=== PATIENT | male | born 1955 | race Caucasian/White ===

== ENCOUNTER → 2023-02-17 | Outpatient (CLI) | payer MEDICARE, BC ==
[~2023-02-17] MED LIST: ASPI81TA26 PO; ATOR1TAB21; FOLI20CA PO; LOSA100T46; VITA100T82 PO; VITAMIN B PO; XARE20TA
== END ==
LOC: M WHC 08:20
PROVIDERS: ATTEND Internal Medicine Hematology & Oncology
DX: K76.0 Fatty (change of) liver, not elsewhere classified (principal); R16.1 Splenomegaly, not elsewhere classified; N28.1 Cyst of kidney, acquired; K76.89 Other specified diseases of liver; N20.0 Calculus of kidney

== ENCOUNTER → 2023-04-23 | Outpatient (REF) | payer MEDICARE, BC ==
[2023-04-23 13:53] LABS: APPEARANCE, URINE CLOUDY (CLEAR); BACTERIA, URINE AUTO NEGATIVE (NEGATIVE); BILIRUBIN, URINE AUTO NEGATIVE (NEGATIVE); BLOOD, URINE BLOOD 3+ (NEGATIVE); COLOR, URINE AMBER (YELLOW); GLUCOSE, URINE (UA) AUTO NEGATIVE (NEGATIVE); KETONE, URINE AUTO NEGATIVE (NEGATIVE); LEUKOCYTE ESTERASE, URINE AUTO NEGATIVE (NEGATIVE); NITRITE, URINE AUTO NEGATIVE (NEGATIVE); PROTEIN, URINE AUTO 2+ mg/dL (NEGATIVE); RBC, URINE AUTO TNTC /HPF (0-3); SPECIFIC GRAVITY URINE AUTO 1.018 (1.002-1.035); SQUAMOUS EPITHELIAL CELL UR AU 0 /HPF (0-6); UROBILINOGEN, URINE AUTO 0.2 mg/dL (0.0-2.0); WBC, URINE AUTO 0 /HPF (0-3)
== END ==
LOC: M LAB REF 12:39
PROVIDERS: ATTEND Internal Medicine
DX: Z01.818 Encounter for other preprocedural examination (principal)

== ENCOUNTER → 2023-05-12 | Outpatient (CLI) | payer MEDICARE, BC ==
[~2023-05-12] MED LIST changes: +CIPR500T39; +FLOM0.4C39 PO
== END ==
LOC: M WUC 13:19
PROVIDERS: ATTEND Urology
DX: N20.0 Calculus of kidney (principal); Z96.0 Presence of urogenital implants

== ENCOUNTER → 2023-11-17 | Outpatient (CLI) | payer MEDICARE, BC ==
[~2023-11-17] MED LIST changes: +B-10TAB2 PO
== END ==
LOC: M RAD 08:13
PROVIDERS: ATTEND Physician Assistant Medical
DX: N20.0 Calculus of kidney (principal); R31.9 Hematuria, unspecified

== ENCOUNTER → 2024-03-31 | Outpatient (CLI) | payer MEDICARE, BC ==
[~2024-03-31] MED LIST changes: +SEMAGLUTIDE
== END ==
LOC: M WUC 14:58
PROVIDERS: ATTEND Urology
DX: N20.0 Calculus of kidney (principal)

== ENCOUNTER → 2024-07-27 | Outpatient (CLI) | payer MEDICARE, BC ==
[2024-07-27 15:45] LABS: CHOLESTEROL RISK RATIO 4.3 (<5); HDL CHOLESTEROL 20.9 MG/DL (>40); LDL CHOLESTEROL 44.1 MG/DL (<100); NON-HDL-C 69.1 MG/DL
== END ==
LOC: M WUC 09:18
PROVIDERS: ATTEND Physician Assistant
DX: I25.10 Atherosclerotic heart disease of native coronary artery without angina pectoris (principal)

== ENCOUNTER → 2024-08-02 | Outpatient (CLI) | payer MEDICARE, BC ==
[2024-08-02 14:03] LABS: BASO % 0.3 % (0.0-1.0); EOS # 0.1 10^3/uL (0.0-0.5); EOS % 2.1 % (0.0-3.0); HEMATOCRIT 48.1 % (42.0-52.0); HEMOGLOBIN 16.3 g/dl (13.5-17.5); LYMPH # 1.2 10^3/uL (1.5-5.0); LYMPH % 20.2 % (24.0-44.0); MEAN CORPUSCULAR HEMOGLOBIN 31.8 pg (27.0-33.0); MEAN CORPUSCULAR HGB CONC 33.9 g/dl (32.0-36.5); MEAN CORPUSCULAR VOLUME 93.8 fl (80.0-96.0); MONO # 0.5 10^3/uL (0.0-0.8); MONO % 7.9 % (2.0-8.0); NEUTROPHILS % 69.3 % (36.0-66.0); PLATELET COUNT, AUTOMATED 108 10^3/uL (150-450); RED BLOOD COUNT 5.13 10^6/uL (4.30-6.10); WHITE BLOOD COUNT 5.8 10^3/uL (4.0-10.0)
[2024-08-02 14:10] LABS: HEMOGLOBIN A1c 4.5 % (4.0-6.0)
[2024-08-02 14:15] LABS: ALBUMIN 4.5 G/DL (3.2-5.2); ALKALINE PHOSPHATASE 68 U/L (40-129); ALT/SGPT 26 U/L (7.0-40); AST/SGOT 22 U/L (<34); BILIRUBIN,TOTAL 2.5 MG/DL (0.3-1.2); BLOOD UREA NITROGEN 15 MG/DL (9-23); CALCIUM LEVEL 9.4 MG/DL (8.3-10.6); CARBON DIOXIDE LEVEL 29 MMOL/L (20-31); CHLORIDE LEVEL 102 MMOL/L (98-107); CREATININE FOR GFR 1.13 MG/DL (0.70-1.30); GLOMERULAR FILTRATION RATE > 60.0 (>49); GLUCOSE, FASTING 91 MG/DL (74-106); POTASSIUM SERUM 4.2 MMOL/L (3.5-5.1); SODIUM LEVEL 139 MMOL/L (136-145); TOTAL PROTEIN 6.8 G/DL (5.7-8.2)
[2024-08-02 14:18] LABS: FREE T4 1.31 NG/DL (0.89-1.76)
[2024-08-02 14:19] LABS: THYROID STIMULATING HORMONE 2.062 uIU/ML (0.55-4.78)
[2024-08-02 14:20] LABS: VITAMIN B12 LEVEL 571 PG/ML (211-911)
[2024-08-02 14:23] LABS: FOLATE > 24.0 NG/ML (>5.4)
[2024-08-02 14:30] LABS: ERYTHROCYTE SEDIMENTATION RATE 11 mm/hr (0-20)
[2024-08-03 08:27] LABS: T P ELECTROPHORESIS SO 6.6 g/dL (6.1-8.1)
[2024-08-03 15:47] LABS: ANA SCREEN, IFA NEGATIVE (NEGATIVE)
== END ==
LOC: M WUC 09:49
PROVIDERS: ATTEND Psychiatry & Neurology Neurology
DX: E11.42 Type 2 diabetes mellitus with diabetic polyneuropathy (principal); E07.9 Disorder of thyroid, unspecified; R20.0 Anesthesia of skin; E53.8 Deficiency of other specified B group vitamins

== ENCOUNTER → 2024-08-29 | Outpatient (REF) | payer MEDICARE, BC ==
[~2024-08-29] MED LIST changes: -FLOM0.4C39 PO; +TAMS-18 PO
== END ==
LOC: M LAB REF 10:12
PROVIDERS: ATTEND Nurse Practitioner Family
DX: R19.7 Diarrhea, unspecified (principal)

== ENCOUNTER → 2025-01-09 | Outpatient (CLI) | payer MEDICARE, BC | LOC: M RAD 12:56 | PROVIDERS: ATTEND Nurse Practitioner Family | DX: I82.90 Acute embolism and thrombosis of unspecified vein (principal); M79.651 Pain in right thigh ==

== ENCOUNTER → 2025-02-08 | Outpatient (CLI) | payer MEDICARE, BC | LOC: M WUC 08:54 | PROVIDERS: ATTEND Nurse Practitioner Family | DX: S79.912A Unspecified injury of left hip, initial encounter (principal); W19.XXXA Unspecified fall, initial encounter; Y92.9 Unspecified place or not applicable; Y93.9 Activity, unspecified; Y99.9 Unspecified external cause status ==